=== PATIENT | female | born 1985 | race Caucasian/White ===

== ENCOUNTER 2020-01-05 03:20 | Emergency (ER) | payer SELFPAY ==
[~2020-01-05] VITALS: Ht 157.5 cm; Wt 75.7 kg
[2020-01-05 05:04] VITALS: BP 137/89
== END 2020-01-05 05:04 | disposition home or self-care (01) ==
LOC: ED 03:20
DX: R20.2 Paresthesia of skin (principal); E11.40 Type 2 diabetes mellitus with diabetic neuropathy, unspecified
CPT/HCPCS: 82962; J1885

== ENCOUNTER 2020-01-05 17:19 | Emergency (ER) | payer SELFPAY ==
[~2020-01-05] VITALS: Ht 162.6 cm; Wt 73.5 kg
[2020-01-05 17:47] VITALS: Ht 162.6 cm; Wt 73.5 kg
[2020-01-05 19:10] VITALS: BP 102/77
== END 2020-01-05 19:10 | disposition short-term general hospital (02) ==
LOC: ED 17:19
DX: G57.12 Meralgia paresthetica, left lower limb (principal); E11.9 Type 2 diabetes mellitus without complications
CPT/HCPCS: J2270; J7512; Q0162